=== PATIENT | male | born 1950 | race Caucasian/White ===

== ENCOUNTER → 2022-12-03 11:50 | Outpatient (BNVA) | payer MEDICARE, BC, SELFPAY | PROVIDERS: Referring Provider Family Medicine; Visit Provider Student in an Organized Health Care Education/Training Program | DX: M79.641 Pain in right hand (principal); M79.642 Pain in left hand; G56.01 Carpal tunnel syndrome, right upper limb | CPT/HCPCS: 73110; 99204 ==

== ENCOUNTER 2022-12-16 07:17 | Day surgery (SDC) | payer MEDICARE, BC, SELFPAY ==
[2022-12-14 08:47] VITALS: BMI 29.1
[2022-12-16] VITALS (7 sets, daily range): BP systolic 128–197; BP diastolic 69–93; PULSE 59–65; RESP 16–18; TEMP 36.1–36.3; O2SAT 94–99
[2022-12-16] MEDS: ketorolac 30 mg/mL INJ IVP (08:02)
[2022-12-16] MEDS: sodium chloride 0.9% 1,000 ML 30 ML IV (08:08)
[2022-12-16] MEDS: acetaminophen 1,000 MG/100 ML PIGGYBACK 400 MG IV (08:09)
--- NOTE | 2022-12-16 08:56 | W.PM.OPSUD ---
Surgery/Procedure H&P Update DATE OF PROCEDURE: December 16, 2022 DATE H&P PERFORMED: 12/03/22 CHANGES TO PREVIOUS DOCUMENTATION: None. No changes in HPI from last office visit. Patient understands risk benefits complication alternatives with surgery and elects proceed with right carpal tunnel release surgery. All questions answered. PREOP DIAGNOSIS: Right carpal Tunnel syndrome PRIMARY INDICATION FOR PROCEDURE: Right carpal tunnel syndrome PLANNED PROCEDURE: Operation Date: 12/16/22 09:00 Proposed Procedures p right carpal tunnel release/ 00111,G56.01(Right) - Romeo Ortiz DO
[2022-12-16] MEDS: ceFAZolin 2,000 MG in sodium chloride 0.9% (plus) 50 ML 100 MG IV (09:07)
[2022-12-16] MEDS: lidocaine-epi 1% 20 mL INJ 5 ML INJECTION (09:17)
--- NOTE | 2022-12-16 09:18 | ANES.PREANE2 ---
Pre-Anesthetic Assessment Height/Weight: Height 1.65 m Weight 79.379 kg Temp Pulse Resp BP Pulse Ox O2 Del Method 97.3 F L 63 18 197/93 96 Room Air 12/16/22 07:54 12/16/22 07:54 12/16/22 07:54 12/16/22 07:54 12/16/22 07:54 12/16/22 07:54 Preop Diagnosis: Right carpal Tunnel syndrome Operation Date: 12/16/22 09:00 Proposed Procedures p right carpal tunnel release/ [id number],G56.01(Right) - Romeo Ortiz DO Familial anesthetic complications: none Was Beta Breonna taken within 24 hours: N/A Was Clonidine taken within 24 hours: N/A Last intake: Intake Last Liquid Date 12/15/22 Last Liquid Time 22:00 Last Solid Date 12/15/22 Last Solid Time 19:30 Social No alcohol and No tobacco Exam alert, oriented x 3, clear to auscultation bilaterally and regular rate & rhythm Airway Submandibular: within normal limits Cervical ROM: within normal limits Mallampati: Class II Dentition: full Musc/skel Osteoarthritis/DJD Anesthetic Plan ASA status: 2 Anesthesia: MAC Medications/Allergies Home Medications Medication Instructions Recorded Confirmed Last Taken Type ascorbate calcium (vitamin C) 500 500 mg PO DAILY 10/20/22 12/14/22 12/15/22 History mg tablet cyanocobalamin (vitamin B-12) 1,000 mcg PO DAILY 10/20/22 12/14/22 12/15/22 History 1,000 mcg capsule flaxseed oil 5 ml miscellaneous DAILY 10/20/22 12/14/22 12/15/22 History vitamin E mixed 400 unit capsule unit PO 10/20/22 12/03/22 12/15/22 History ibuprofen 400 mg tablet 200 mg PO Q8H 12/14/22 12/14/22 12/16/22 04:30 History Allergies Allergy/AdvReac Type Severity Reaction Status Date / Time No Known Allergies Allergy Verified 12/16/22 07:30 Current Medications Generic Name Dose Route Start Last Admin Trade Name Freq PRN Reason Stop Dose Admin Sodium Chloride 1,000 mls @ 30 mls/hr 12/16/22 07:30 12/16/22 08:08 Sodium Chloride 0.9% IV 12/17/22 07:29 30 mls/hr .Q24H ANA LILIA Administration PFSH Anesthesia Family History Father Lung disease Mother CAD (coronary artery disease) Data Anesthesia Cardiac Studies: No Data to Display
--- NOTE | 2022-12-16 09:43 | PM.OP2 ---
Brief Operative Note Date of procedure: 12/16/22 Pre-op diagnosis: Right carpal tunnel syndrome Post-op diagnosis: same Procedure Done: Right carpal tunnel release Surgeon: Romeo Ortiz Estimated blood loss (mL): 1 Complications: None Post-op Plan: Patient taken to PACU in stable condition recovering well. Will receive appropriate discharge instructions as well as pain medication postoperatively. Follow-up in the orthopedic office in 2 weeks. Condition: stable Disposition: same day Coding Level of Care Code Acute Code for Kanu Frederick
--- NOTE | 2022-12-16 09:44 | PM.PACU ---
PACU note Narrative: Patient taken to PACU in stable condition recovering well. Dressing on in place clean dry and intact. Patient is able to wiggle fingers. Brisk capillary refill less than 2 seconds. Hand is warm well perfused. Decreased sensation secondary to local anesthesia. Exam: awake Disposition: discharged
--- NOTE | 2022-12-16 09:45 | P.OP_ITS ---
Operative Report Date of procedure: December 16, 2022 Pre-op diagnosis: Preop Diagnosis Right carpal Tunnel syndrome Procedure: Post-op diagnosis: Same Procedure done: 1. Right carpal tunnel release Surgeon: Romeo Ortiz DO Anesthesia: MAC (Local) Estimated blood loss: [1]mL Tourniquet time [10]minutes IV fluids: See anesthesia record Complications: None Findings: See operative report narrative Condition: stable Disposition: same day Brief History: Patient is a pleasant [72]year-old [male]?with right carpal tunnel syndrome.? Patient has been worked up in the outpatient setting findings and physical examination consistent with this.? ? Patient's failed conservative treatment. We detailed?out?patient's risk benefits complication alternatives with surgical and?nonsurgical treatment options. Through shared decision making, patient?agrees to proceed with surgical intervention of the right carpal tunnel release .? Patient understands and agrees with current plan.? All questions answered.? Patient elects to proceed with surgical intervention with carpal tunnel release. Procedure: Patient seen and evaluated in the preoperative holding area.? Consent was reviewed and signed with patient.? Correct extremity was marked.? Patient was seen evaluated by the anesthesia department once cleared for surgery was brought back to the operative suite.? Patient patient placed in supine position all bony prominences were well-padded patient properly secured to the bed.? Right upper extremity was then placed onto an armboard.? A nonsterile tourniquet was applied to the right upper arm.? Patient underwent anesthesia per the anesthesia department.? Patient's right upper extremity was then prepped and draped in standard orthopedic fashion.? Final timeout performed.? Patient received appropriate preoperative antibiotics. Under sterile aseptic technique patient received local anesthesia over the p replanned carpal tunnel incision site. Esmarch was used to exsanguinate the right upper extremity and tourniquet was insufflated to 250 mmHg. A standard mini open right carpal tunnel incision was made.? Starting distally at Moss's cardinal line in line with the fourth ray extending proximally distal to the wrist crease centered over the carpal tunnel.? Sharp scalpel incision was made through skin and subcutaneous tissue.? Self-retaining retractor was placed and the palmar fascia was identified.? This was then split longitudinally and direct visualization of the transverse carpal ligament was then made.? I then utilizing scalpel feathered through the transverse carpal ligament until I entered the floor of the transverse carpal tunnel ligament into the carpal tunnel.? Next I switched to dissection scissors and completed my release of the transverse carpal ligament distally with care to protect the recurrent motor branch.? I completely released into the palmar fat and until no entrapment was noted distally.? Care was made to protect the superficial palmar arch during my distal dissection.? Next I then placed a [place] underneath the transverse carpal tunnel ligament to protect the contents of the carpal tunnel and subsequently utilizing dissection scissors under loupe magnification completely released the transverse carpal ligament proximally into the median antebrachial fascia.? Care was made to protect the palmar cutaneous branch by keeping my scissors curved ulnarly.? Once completely released, I then placed my [place] and had appropriate decompression of the carpal tunnel proximally as well as distally.? I then inspected the contents of the carpal tunnel which showed an hourglass shape of the median nerve showing its compression.? No masses were noted.? Tendons appeared healthy.? Wound was then thoroughly irrigated.? Tourniquet deflated.? Hemostasis satisfactory with bipolar electrocautery.? I then closed the incision with interrupted nylon stitches.? Xeroform 4 x 4's and a bulky soft dressing was applied to the right upper extremity.? Patient was then awakened from anesthesia and taken to PACU in stable condition.? Patient tolerated procedure without complications. Disposition: Patient taken to PACU in stable condition recovering well.? Dressing clean dry and intact.? Patient will receive appropriate discharge instructions as well as pain medication postoperatively.? Patient to follow-up with me in the office in 2 weeks.? They understand they may be weightbearing as tolerated to the right hand.? Patient should keep incision clean dry and intact.? Patient understands if any questions or concerns may contact the office.
--- NOTE | 2022-12-16 16:34 | ANE.PACU2 ---
Inpatient post-anesthesia follow up: Airway intact: Yes Vital signs: Temperature 97.0 F Pulse Rate 59 Respiratory Rate 18 Blood Pressure 164/79 Pulse Oximetry 98 Oxygen Delivery Me thod Room Air Oxygen Flow Rate Fraction of Inspir ed Oxygen Hydration adequate: Yes Nausea and vomiting: No Pain level: 2 Mental status: Baseline
== END 2022-12-16 10:32 | disposition home or self-care (01) ==
PROVIDERS: PCP Family Medicine; Visit Provider Student in an Organized Health Care Education/Training Program
PROC: (CPT 64721; principal; 2022-12-16 08:50)
DX: G56.01 Carpal tunnel syndrome, right upper limb (principal)
CPT/HCPCS: 64721; J0131; J0690; J1100; J1885; J2704; J2795; J3010; J7030

== ENCOUNTER → 2022-12-31 09:11 | Outpatient (BNVA) | payer MEDICARE, BC, SELFPAY | PROVIDERS: PCP Family Medicine; Visit Provider Student in an Organized Health Care Education/Training Program | DX: G56.03 Carpal tunnel syndrome, bilateral upper limbs (principal) | CPT/HCPCS: 99214 ==

== ENCOUNTER 2023-01-18 05:37 | Day surgery (SDC) | payer MEDICARE, BC, SELFPAY ==
[2023-01-15 09:04] VITALS: BMI 29.1
[2023-01-18 05:57] VITALS: BP 202/81; PULSE 63; RESP 18; TEMP 36.5; O2SAT 97
[2023-01-18] MEDS: acetaminophen 1,000 MG/100 ML PIGGYBACK 400 MG IV (06:17)
[2023-01-18] MEDS: ketorolac 30 mg/mL INJ IVP (06:18)
[2023-01-18] MEDS: sodium chloride 0.9% 1,000 ML 30 ML IV (06:18)
--- NOTE | 2023-01-18 06:41 | W.PM.OPSUD ---
Surgery/Procedure H&P Update DATE OF PROCEDURE: January 18, 2023 DATE H&P PERFORMED: 12/31/22 CHANGES TO PREVIOUS DOCUMENTATION: None. No change in HPI from office visit on 12/31/2022. Patient continues to have left carpal tunnel syndrome he has failed conservative treatment elects to proceed with surgical intervention of left carpal tunnel release. Patient understands risk benefits complication alternatives with surgery elects to proceed with surgical intervention all questions answered at this time. PREOP DIAGNOSIS: Left Carpal Tunnel syndrome PRIMARY INDICATION FOR PROCEDURE: Left carpal tunnel syndrome PLANNED PROCEDURE: Operation Date: 01/18/23 07:00 Proposed Procedures p Left Carpal Tunnel Release 48797,G56.02(Left) - Romeo Ortiz DO
--- NOTE | 2023-01-18 06:47 | ECG_ITS ---
[facility] Test Date: 2023-01-18 Pat Name: Heber Maritnez Department: Room: Gender: Male [employer]roe[employer] Professor: : 1950 Requested By: Romeo Ortiz Order Number: [id number] Francheska MD: Mykel Reeder M.D. Measurements Intervals [place] Rate: 62 P: 28 CA: 173 QRS: 26 QRSD: 107 T: 10 QT: 397 QTc: 406 Interpretive Statements SINUS RHYTHM No previous ECG available for comparison Electronically Signed On 01-18-2023 22:49:22 CDT by Mykel Reeder M.D. [id number]
--- NOTE | 2023-01-18 06:49 | ANES.PREANE2 ---
Pre-Anesthetic Assessment Height/Weight: Height 1.65 m Weight 79.379 kg Temp Pulse Resp BP Pulse Ox O2 Del Method 97.7 F 63 18 202/81 97 Room Air 01/18/23 05:57 01/18/23 05:57 01/18/23 05:57 01/18/23 05:57 01/18/23 05:57 01/18/23 06:13 Preop Diagnosis: Left Carpal Tunnel syndrome Operation Date: 01/18/23 07:00 Proposed Procedures p Left Carpal Tunnel Release [id number],G56.02(Left) - Romeo Ortiz, Familial anesthetic complications: none Was Beta Breonna taken within 24 hours: N/A Was Clonidine taken within 24 hours: N/A Last intake: Intake Last Liquid Date 01/17/23 Last Liquid Time 22:00 Last Solid Date 01/17/23 Last Solid Time 18:30 Social No alcohol and No tobacco Exam alert, oriented x 3, clear to auscultation bilaterally and regular rate & rhythm Airway Mallampati: Class III Dentition: full Musc/skel Osteoarthritis/DJD Anesthetic Plan ASA status: 1 Anesthesia: MAC Risk of > 500 ml blood loss (7ml/kg in children): No Medications/Allergies Home Medications Medication Instructions Recorded Confirmed Last Taken Type ascorbate calcium (vitamin C) 500 500 mg PO DAILY 10/20/22 01/15/23 01/17/23 History mg tablet cyanocobalamin (vitamin B-12) 1,000 mcg PO DAILY 10/20/22 01/15/23 01/17/23 History 1,000 mcg capsule flaxseed oil 5 ml miscellaneous DAILY 10/20/22 01/15/23 01/17/23 History vitamin E mixed 400 unit capsule 400 unit PO DAILY 10/20/22 01/15/23 01/17/23 History ibuprofen 400 mg tablet 200 mg PO Q8H 12/14/22 01/18/23 12/16/22 04:30 History Allergies Allergy/AdvReac Type Severity Reaction Status Date / Time No Known Allergies Allergy Verified 01/18/23 06:03 Current Medications Generic Name Dose Route Start Last Admin Trade Name Freq PRN Reason Stop Dose Admin Sodium Chloride 1,000 mls @ 30 mls/hr 01/18/23 06:00 01/18/23 06:18 Sodium Chloride 0.9% IV 01/19/23 05:59 30 mls/hr .Q24H ANA LILIA Administration PFSH Anesthesia Family History Father Lung disease Mother CAD (coronary artery disease) Data Anesthesia Cardiac Studies: No Data to Display
[2023-01-18] MEDS: ceFAZolin 2,000 MG in sodium chloride 0.9% (plus) 50 ML 100 MG IV (06:58)
[2023-01-18] MEDS: ROPivacaine 0.5% SDV 30 mL 150 MG INJECTION (07:40)
[2023-01-18] MEDS: lidocaine-epi 1% 20 mL INJ 10 ML INJECTION (07:41)
[2023-01-18 07:44] VITALS: BP 96/55; PULSE 58; RESP 14; TEMP 36.1; O2SAT 96
--- NOTE | 2023-01-18 07:47 | PM.OP2 ---
Brief Operative Note Date of procedure: 01/18/23 Pre-op diagnosis: Left carpal tunnel syndrome Post-op diagnosis: same Procedure Done: Left carpal tunnel release Surgeon: Romeo Ortiz Estimated blood loss (mL): 1 Complications: None Post-op Plan: Patient taken to PACU in stable condition recovering well. Pain controlled. Will receive appropriate discharge instructions as well as pain medication postoperatively. Patient follow-up in the orthopedic office in 2 weeks. Patient understands agrees with current plan. All questions answered. Condition: stable Disposition: same day Coding Level of Care Code Acute Code for Kanu Frederick
--- NOTE | 2023-01-18 07:48 | P.OP_ITS ---
Operative Report Date of procedure: January 18, 2023 Pre-op diagnosis: Preop Diagnosis Left Carpal Tunnel syndrome Procedure: Post-op diagnosis: Same Procedure done: 1. Left carpal tunnel release Surgeon: Romeo Ortiz DO Anesthesia: MAC (Local) Estimated blood loss: [1]mL Tourniquet time [10]minutes IV fluids: See anesthesia record Complications: None Findings: See operative report narrative Condition: stable Disposition: same day Brief History: Patient is a pleasant [72year-old [male]?with left carpal tunnel syndrome.? Patient has been worked up in the outpatient setting findings and physical examination consistent with this.? Patient's failed conservative treatment of bracing and injections. We detailed?out?patient's risk benefits complication alternatives with surgical and?nonsurgical treatment options. Through shared decision making, patient?agrees to proceed with surgical intervention of the left carpal tunnel release .? Patient understands and agrees with current plan.? All questions answered.? Patient elects to proceed with surgical intervention with carpal tunnel release. Procedure: Patient seen and evaluated in the preoperative holding area.? Consent was reviewed and signed with patient.? Correct extremity was marked.? Patient was seen evaluated by the anesthesia department once cleared for surgery was brought back to the operative suite.? Patient was kept on [facility] in supine position all bony prominences were well-padded patient properly secured to the bed.? Left upper extremity was then placed onto an armboard.? A nonsterile tourniquet was applied to the left upper arm.? Patient underwent anesthesia per the anesthesia department.? Patient's left upper extremity was then prepped and draped in standard orthopedic fashion.? Final timeout performed.? Patient received appropriate preoperative antibiotics. Under sterile aseptic technique patient received local anesthesia over the preplanned carpal tunnel incision site. Esmarch was used to exsanguinate the left upper extremity and tourniquet was insufflated to 250 mmHg. A standard mini open left carpal tunnel incision was made.? Starting distally at Moss's cardinal line in line with the fourth ray extending proximally distal to the wrist crease centered over the carpal tunnel.? Sharp scalpel incision was made through skin and subcutaneous tissue.? Self-retaining retractor was placed and the palmar fascia was identified.? This was then split longitudinally and direct visualization of the transverse carpal ligament was then made.? I then utilizing scalpel feathered through the transverse carpal ligament until I entered the floor of the transverse carpal tunnel ligament into the carpal tunnel.? Next I switched to dissection scissors and completed my release of the transverse carpal ligament distally with care to protect the recurrent motor branch.? I completely released into the palmar fat and until no entrapment was noted distally.? Care was made to protect the superficial palmar arch during my distal dissection.? Next I then placed a [place] underneath the transverse carpal tunnel ligament to protect the contents of the carpal tunnel and subsequently utilizing dissection scissors under loupe magnification completely released the transverse carpal ligament proximally into the median antebrachial fascia.? Care was made to protect the palmar cutaneous branch by keeping my scissors curved ulnarly.? Once completely released, I then placed my [place] and had appropriate decompression of the carpal tunnel proximally as well as distally.? I then inspected the contents of the carpal tunnel which showed an hourglass shape of the median nerve showing its compression.? No masses were noted.? Tendons appeared healthy.? Wound was then thoroughly irrigated.? Tourniquet deflated.? Hemostasis satisfactory with bipolar electrocautery.? I then closed the incision with interrupted nylon stitches.? Xeroform 4 x 4's and a bulky soft dressing was applied to the left upper extremity.? Patient was then awakened from anesthesia and taken to PACU in stable condition.? Patient tolerated procedure without complications. Disposition: Patient taken to PACU in stable condition recovering well.? Dressing clean dry and intact.? Patient will receive appropriate discharge instructions as well as pain medication postoperatively.? Patient to follow-up with me in the office in 2 weeks.? They understand they may be weightbearing as tolerated to the left hand.? Patient should keep incision clean dry and intact.? Patient understands if any questions or concerns may contact the office.
--- NOTE | 2023-01-18 07:48 | PM.PACU ---
PACU note Narrative: taken to PACU in stable condition fingertips are warm well-perfused dressing on in place to the left hand is clean dry and intact fingertips have brisk capillary refill less than 2 seconds he is able to wiggle his fingers he does have decreased sensation secondary to local anesthesia. Exam: awake Disposition: discharged
[2023-01-18 07:50] VITALS: BP 117/64; PULSE 58; RESP 15; O2SAT 95
[2023-01-18 07:55] VITALS: BP 122/65; PULSE 61; RESP 15; O2SAT 96
[2023-01-18 07:59] VITALS: BP 137/67; PULSE 62; RESP 16; O2SAT 97
--- NOTE | 2023-01-18 08:05 | ANE.PACU2 ---
Inpatient post-anesthesia follow up: Airway intact: Yes Vital signs: Temperature 97.0 F Pulse Rate 59 Respiratory Rate 16 Blood Pressure 140/85 Pulse Oximetry 98 Oxygen Delivery Me thod Room Air Oxygen Flow Rate 6 Fraction of Inspir ed Oxygen Hydration adequate: Yes Nausea and vomiting: Yes Pain level: 1 Mental status: Baseline
[2023-01-18 08:12] VITALS: BP 140/85; PULSE 59; RESP 16; O2SAT 98
== END 2023-01-18 08:35 | disposition home or self-care (01) ==
PROVIDERS: PCP Family Medicine; Visit Provider Student in an Organized Health Care Education/Training Program
PROC: (CPT 64721; principal; 2023-01-18 07:00)
DX: G56.02 Carpal tunnel syndrome, left upper limb (principal); Z79.899 Other long term (current) drug therapy
CPT/HCPCS: 64721; 93005; J0131; J0690; J1885; J2704; J2795; J3010; J7030

== ENCOUNTER → 2023-02-02 08:55 | Outpatient (BNVA) | payer MEDICARE, BC, SELFPAY | PROVIDERS: PCP Family Medicine; Visit Provider Student in an Organized Health Care Education/Training Program | DX: M79.641 Pain in right hand; M79.642 Pain in left hand; G56.03 Carpal tunnel syndrome, bilateral upper limbs | CPT/HCPCS: 99024 ==

== ENCOUNTER → 2024-05-16 12:44 | Outpatient (BNVA) | payer MEDICARE, BC, SELFPAY | PROVIDERS: PCP Family Medicine; Visit Provider Nurse Practitioner Family | DX: Z13.6 Encounter for screening for cardiovascular disorders (principal); I10 Essential (primary) hypertension; G56.01 Carpal tunnel syndrome, right upper limb | CPT/HCPCS: 80053; 80061; 84443; 85025 ==

== ENCOUNTER → 2024-08-08 14:33 | Outpatient (BNVA) | payer MEDICARE, BC, SELFPAY | PROVIDERS: PCP Family Medicine; Visit Provider Nurse Practitioner Family | DX: L85.3 Xerosis cutis (principal); L91.8 Other hypertrophic disorders of the skin; L81.4 Other melanin hyperpigmentation; D18.01 Hemangioma of skin and subcutaneous tissue; D48.5 Neoplasm of uncertain behavior of skin; L57.0 Actinic keratosis | CPT/HCPCS: 11102; 17000; 99203 ==

== ENCOUNTER → 2024-09-06 08:08 | Outpatient (BNVA) | payer MEDICARE, BC, SELFPAY | PROVIDERS: PCP Family Medicine; Visit Provider Dermatology | DX: C44.41 Basal cell carcinoma of skin of scalp and neck (principal); C44.319 Basal cell carcinoma of skin of other parts of face | CPT/HCPCS: 13132; 17282; 17311 ==

== ENCOUNTER 2024-09-19 11:02 | Outpatient (CLI) | payer MEDICARE, BC, SELFPAY ==
--- NOTE | 2024-09-19 11:15 | USCV_ITS ---
Heber Martinez Age: 74 Gender: M : 1950 Exam Date: 09/19/2024 11:14 Ordering Phys: Pam Chawla Technologist: Exam Location: [facility] [place] Indication: cp murmur BP: 125 / 80 HR: 77 Rhythm: Sinus Technical Quality: Adequate MEASUREMENTS (Male / Female) Normal Values 2D ECHO LV Diastolic Diameter PLAX 4.0 cm 4.2 - 5.9 / 3.9 - 5.3 cm IVS Diastolic Thickness 1.5 cm 0.6 - 1.0 / 0.6 - 0.9 cm IVS Systolic Thickness 1.7 cm LVPW Diastolic Thickness 1.6 cm 0.6 - 1.0 / 0.6 - 0.9 cm LVPW Systolic Thickness 1.6 cm LVOT Diameter 2.0 cm LV Ejection Fraction 2D Teich 64.3 % LV Ejection Fraction MOD 4C 71.2 % LV Ejection Fraction MOD 2C 64.5 % LV Ejection Fraction 2C AL 66.8 % LA Diameter 4.0 cm RA Systolic Volume 4C AL 58.4 ml RA Systolic Volume 4C MOD 57.0 ml LA Sys Volume AL 66.1 cm cubed LA Sys Volume Index AL 34.0 cm cubed/m squared Aorta at Sinotubular Diameter 2.9 cm IVC Diameter 2.3 cm M-MODE LA Ao Ratio MM 1.5 AV Cusp Separation MM 1.4 cm DOPPLER AV Peak Velocity 286.0 cm/s LVOT Peak Velocity 94.0 cm/s AV Area Cont Eq vti 1.2 cm squared AV Area Cont Eq pk 1.1 cm squared MV Peak Velocity 129.0 cm/s MV Area PHT 3.6 cm squared Mitral E to A Ratio 2.5 TV Peak Velocity 193.5 cm/s TR Peak Velocity 204.0 cm/s TR Peak Gradient 16.6 mmHg TV Peak E Velocity 99.0 cm/s PV Peak Velocity 165.0 cm/s FINDINGS Left Ventricle Moderate left ventricular hypertrophy. Normal left ventricular size and systolic function, EF 65%. No regional wall motion abnormalities. Right Ventricle The right ventricle is normal in size and function. Right Atrium The right atrium is normal in size. Left Atrium The left atrium is normal in size. Mitral Valve No gross abnormalities noted Aortic Valve Moderate aortic valve stenosis, mean gradient 15.8 mmHg, ROSANNA 1.2 cm squared. Peak velocity of 2. 9 m/s with a peak gradient of 34 mmHg Tricuspid Valve Trace tricuspid valve regurgitation. Pulmonic Valve Trace pulmonary valve regurgitation. Pericardium No pericardial effusion. Aorta Normal aortic annulus size. IVC Inferior vena cava not visualized. CONCLUSIONS Moderate left ventricular hypertrophy. Normal left ventricular size and systolic function, EF 65%. No regional wall motion abnormalities. Moderate aortic valve stenosis, mean gradient 15.8 mmHg, ROSANNA 1.2 cm squared. Peak velocity of 2. 9 m/s with a peak gradient of 34 mmHg. Trace pulmonary valve regurgitation. Trace tricuspid valve regurgitation. There is no pericardial effusion. There are no intracardiac masses. No similar previous studies are available for comparison Dr Mykel Reeder MD [facility] (Electronically Signed) Final Date: 21 September 2024 13:17 S
== END 2024-09-19 11:03 | disposition home or self-care (01) ==
PROVIDERS: PCP Nurse Practitioner Family; Visit Provider Nurse Practitioner Family
DX: I10 Essential (primary) hypertension (principal); R01.1 Cardiac murmur, unspecified; I51.7 Cardiomegaly; I35.0 Nonrheumatic aortic (valve) stenosis
CPT/HCPCS: 93306

== ENCOUNTER → 2025-04-23 14:14 | Outpatient (BNVA) | payer MEDICARE, BC, SELFPAY | PROVIDERS: PCP Nurse Practitioner Family; Visit Provider Nurse Practitioner Family | DX: I10 Essential (primary) hypertension (principal); G56.01 Carpal tunnel syndrome, right upper limb | CPT/HCPCS: 80053; 80061; 84443; 85025 ==